=== PATIENT | female | born 1935 | race Caucasian/White ===

== ENCOUNTER 2017-01-10 09:36 | Inpatient (IN) | payer MEDICARE, OTHER ==
[~2017-01-10] VITALS: Ht 157.5 cm; Wt 69.1 kg
[2017-01-10 10:19] LABS: HEMOGLOBIN 12.5 gm/dl (12.3-15.3); RED BLOOD COUNT 4.09 M/UL (4.00-5.10); WHITE BLOOD COUNT 13.6 K/UL (4.5-11.0)
[2017-01-10] MEDS ORDERED: NORVASC 5 MG TAB5 MG PO (18:26)
[2017-01-10] MEDS ORDERED: LIPITOR TAB 2020 MG PO (18:27)
[2017-01-10] MEDS ORDERED: ASPIR-LOW81 MG PO (18:27)
[2017-01-10] MEDS ORDERED: LOPRESSOR 25 MG25 MG PO (18:27)
[2017-01-11 04:26] LABS: HEMOGLOBIN 11.7 gm/dl (12.3-15.3); RED BLOOD COUNT 3.82 M/UL (4.00-5.10); WHITE BLOOD COUNT 14.2 K/UL (4.5-11.0)
--- NOTE | 2017-01-12 22:41 | NUR ---
PATIENT ENCOURAGED TO WEAR BIPAP, THE RISKS AND BENEFITS OF WEARING BIPAP EXPLAINED. , AND PATIENT DECLINES. PATIENT NODS HER HEAD YES IN UNDERSTANDING AND STATES, "I DON'T LIKE IT." DAUGHTER AT BEDSIDE AND STATES, " I DON'T WANT MY MOMMA TO DO ANYTHING THAT SHE ISN'T COMFORTABLE WITH." I ALSO ENCOURAGED PATIENT TO INCREASE PO INTAKE AND OFFERED HER A GLASS OF WATER.
[2017-01-13 05:48] LABS: HEMOGLOBIN 11.2 gm/dl (12.3-15.3); RED BLOOD COUNT 3.66 M/UL (4.00-5.10)
[2017-01-13 05:59] LABS: WHITE BLOOD COUNT 10.3 K/UL (4.5-11.0)
[2017-01-14 04:23] LABS: HEMOGLOBIN 11.5 gm/dl (12.3-15.3); RED BLOOD COUNT 3.78 M/UL (4.00-5.10); WHITE BLOOD COUNT 10.4 K/UL (4.5-11.0)
[2017-01-15 04:54] LABS: HEMOGLOBIN 11.8 gm/dl (12.3-15.3); RED BLOOD COUNT 3.93 M/UL (4.00-5.10); WHITE BLOOD COUNT 10.1 K/UL (4.5-11.0)
[2017-01-17 04:32] LABS: HEMOGLOBIN 10.8 gm/dl (12.3-15.3); RED BLOOD COUNT 3.62 M/UL (4.00-5.10)
[2017-01-17 04:33] LABS: WHITE BLOOD COUNT 7.2 K/UL (4.5-11.0)
[2017-01-18 09:43] LABS: HEMOGLOBIN 11.4 gm/dl (12.3-15.3); RED BLOOD COUNT 3.74 M/UL (4.00-5.10)
[2017-01-18 09:55] LABS: WHITE BLOOD COUNT 9.9 K/UL (4.5-11.0)
--- NOTE | 2017-01-19 04:25 | NUR ---
01/19/17 APPROXIMATED 0320 MARIA LUZ FROM [facility] CONTACTED ME TO CLARIFY IF PT HAD BEEN ON BIPAP BEFORE. SHE STATED THAT PER RT'S CHARTING THE PATIENT HAD REFUSED THE BIPAP AND HAD NEVER BEEN ON IT. SHE REMINDED ME OF POLICY THAT ANY PT NEWLY PLACED ON BIPAP MAY NOT BE ON A MEDSURG FLOOR. I CLARIFIED WITH THE PTS DAUGHTER WHO CARES FOR HER THAT THE PATIENT HAD BEEN ON THE BIPAP BEFORE. THE DAUGHTER STATED THAT THE PATIENT WOULD WEAR IT FOR A FEW HOURS IN PCU BEFORE IT "GOT TO BE TOO MUCH FOR HER NERVES" AND THEN SHE WOULD REFUSE TO WEAR IT ANYMORE. I CONTACTED DR. BROTHERS, EXPLAINED THE POLICY AND THE INFORMATION THAT I OBTAINED FROM THE DAUGHTER, AND RECEIVED AN ORDER THAT IT IS OKAY FOR HER TO REMAIN ON MEDSURG. I NOTIFED MARIA LUZ OF THIS IMMEDIATELY.
== END 2017-01-19 12:00 | DRG 246 ==
LOC: ER1 09:36 → ZEROF 11:49 → MED SURG 4 11:49 → PROG CARE 11:49 → MED SURG 4 17:36 → PROG CARE 01-11 14:17 → M/S 01-18 21:37
PROVIDERS: Emergency Medicine; Hospitalist; Physician Assistant Medical; ADMIT Family Medicine
PROC: 027034Z Dilation of Coronary Artery, One Artery with Drug-eluting Intraluminal Device, Percutaneous Approach (ICD-10-PCS; principal; 2017-01-14)
PROC: 4A023N6 Measurement of Cardiac Sampling and Pressure, Right Heart, Percutaneous Approach (ICD-10-PCS; 2017-01-14)
PROC: B2141ZZ Fluoroscopy of Right Heart using Low Osmolar Contrast (ICD-10-PCS; 2017-01-14)
DX: I21.4 Non-ST elevation (NSTEMI) myocardial infarction (principal); J96.01 Acute respiratory failure with hypoxia; I50.33 Acute on chronic diastolic (congestive) heart failure; J10.01 Influenza due to other identified influenza virus with the same other identified influenza virus pneumonia; G93.41 Metabolic encephalopathy; I13.0 Hypertensive heart and chronic kidney disease with heart failure and stage 1 through stage 4 chronic kidney disease, or unspecified chronic kidney disease; E87.2 Acidosis; N17.9 Acute kidney failure, unspecified; E87.1 Hypo-osmolality and hyponatremia; I35.0 Nonrheumatic aortic (valve) stenosis; N18.3 Chronic kidney disease, stage 3 (moderate); E11.65 Type 2 diabetes mellitus with hyperglycemia; E66.01 Morbid (severe) obesity due to excess calories; Z68.28 Body mass index [BMI] 28.0-28.9, adult; M62.50 Muscle wasting and atrophy, not elsewhere classified, unspecified site; R79.89 Other specified abnormal findings of blood chemistry; Z90.710 Acquired absence of both cervix and uterus; Z98.890 Other specified postprocedural states; Z83.3 Family history of diabetes mellitus; Z79.82 Long term (current) use of aspirin; Z79.899 Other long term (current) drug therapy; R53.1 Weakness; R00.0 Tachycardia, unspecified; D72.829 Elevated white blood cell count, unspecified; Z51.89 Encounter for other specified aftercare
CPT/HCPCS: ECHO; 36415; 36600; 71010; 80048; 80053; 80202; 82550; 82553; 82803; 82962; 83735; 83880; 84132; 84484; 85014; 85018; 85025; 85027; 85347; 86140; 87040; 87077; 87186; 93005; 93306; 93308; 94640; 94660; 94664; 96372; 96374; 97110; 97116; 97530; 97535; 99285; C1769; C1887; C9600; J0583; J0696; J1644; J1815; J1940; J1956; J2250; J2550; J3010; J3370; J7030; J7040; J7050; J7070; Q9965

== ENCOUNTER → 2017-02-02 | Outpatient (CLI) | payer MEDICARE, OTHER ==
[~2017-02-02] MED LIST: ASPIR-LOW81 MG PO; CLOPIDOGREL75 MG PO; DILTIAZEM 24HR180 M1 PO; LASIX TAB 20 MG20 MG PO; LIPITOR TAB 2020 MG PO; LOPRESSOR 25 MG25 MG PO; MAXIMUM DAILY1 EAC1 PO; NORVASC 5 MG TAB5 MG PO; POTASSIUM CHLO10 MEQ PO
== END ==
LOC: HH 12:36
PROVIDERS: Internal Medicine Cardiovascular Disease
DX: I50.32 Chronic diastolic (congestive) heart failure (principal)
CPT/HCPCS: 80053

== ENCOUNTER 2017-02-04 10:05 | Inpatient (IN) | payer MEDICARE, OTHER ==
[~2017-02-04] VITALS: Ht 157.5 cm; Wt 68.5 kg
[~2017-02-04 10:05] MED LIST changes: -CLOPIDOGREL75 MG PO; -DILTIAZEM 24HR180 M1 PO; -LASIX TAB 20 MG20 MG PO; -MAXIMUM DAILY1 EAC1 PO; -POTASSIUM CHLO10 MEQ PO
[2017-02-04 11:22] LABS: HEMOGLOBIN 9.2 gm/dl (12.3-15.3); RED BLOOD COUNT 3.04 M/UL (4.00-5.10)
[2017-02-04] MEDS ORDERED: LASIX TAB 20 MG20 MG PO (21:23)
[2017-02-04] MEDS ORDERED: POTASSIUM CHLO10 MEQ PO (21:24)
[2017-02-04] MEDS ORDERED: DILTIAZEM 24HR180 M1 PO (21:26)
[2017-02-04] MEDS ORDERED: CLOPIDOGREL75 MG PO (21:26)
[2017-02-04] MEDS ORDERED: LOPRESSOR 25 MG25 MG PO (21:27)
[2017-02-04] MEDS ORDERED: MAXIMUM DAILY1 EAC1 PO (21:28)
[2017-02-05 03:33] LABS: HEMOGLOBIN 8.8 gm/dl (12.3-15.3); RED BLOOD COUNT 2.95 M/UL (4.00-5.10); WHITE BLOOD COUNT 14.3 K/UL (4.5-11.0)
== END 2017-02-07 09:25 | disposition short-term general hospital (02) | DRG 291 ==
LOC: ER1 10:05 → CCU 16:20
PROVIDERS: Emergency Medicine; Hospitalist; ADMIT Internal Medicine
DX: I13.0 Hypertensive heart and chronic kidney disease with heart failure and stage 1 through stage 4 chronic kidney disease, or unspecified chronic kidney disease (principal); I50.33 Acute on chronic diastolic (congestive) heart failure; J96.21 Acute and chronic respiratory failure with hypoxia; J96.22 Acute and chronic respiratory failure with hypercapnia; J90 Pleural effusion, not elsewhere classified; N17.9 Acute kidney failure, unspecified; I35.0 Nonrheumatic aortic (valve) stenosis; N18.3 Chronic kidney disease, stage 3 (moderate); D64.9 Anemia, unspecified; I25.2 Old myocardial infarction; I25.10 Atherosclerotic heart disease of native coronary artery without angina pectoris; E11.22 Type 2 diabetes mellitus with diabetic chronic kidney disease; E78.5 Hyperlipidemia, unspecified; Z95.5 Presence of coronary angioplasty implant and graft; Z90.710 Acquired absence of both cervix and uterus; Z98.890 Other specified postprocedural states; Z88.8 Allergy status to other drugs, medicaments and biological substances; Z87.891 Personal history of nicotine dependence; E66.9 Obesity, unspecified; Z68.27 Body mass index [BMI] 27.0-27.9, adult; Z79.02 Long term (current) use of antithrombotics/antiplatelets; Z79.82 Long term (current) use of aspirin; Z79.899 Other long term (current) drug therapy; R79.89 Other specified abnormal findings of blood chemistry
CPT/HCPCS: 36415; 36600; 71010; 80048; 80053; 82550; 82553; 82803; 82962; 83735; 83874; 83880; 84484; 85014; 85018; 85025; 85027; 87040; 93005; 94640; 94664; 96374; 96375; 99285; J1940; J2543; J7050

== ENCOUNTER 2017-04-01 15:52 | Emergency (ER) | payer MEDICARE, OTHER ==
[~2017-04-01 15:52] MED LIST changes: +CLOPIDOGREL75 MG PO; +DILTIAZEM 24HR180 M1 PO; +LASIX TAB 20 MG20 MG PO; +MAXIMUM DAILY1 EAC1 PO; +POTASSIUM CHLO10 MEQ PO
[2017-04-01 17:58] LABS: HEMOGLOBIN 9.1 gm/dl (12.3-15.3); RED BLOOD COUNT 3.1 M/UL (4.00-5.10); WHITE BLOOD COUNT 9.4 K/UL (4.5-11.0)
== END 2017-04-01 20:15 | disposition home or self-care (01) ==
LOC: ER1 15:52
PROVIDERS: Emergency Medicine
DX: S00.03XA Contusion of scalp, initial encounter (principal); W01.0XXA Fall on same level from slipping, tripping and stumbling without subsequent striking against object, initial encounter; Y92.009 Unspecified place in unspecified non-institutional (private) residence as the place of occurrence of the external cause
CPT/HCPCS: 36415; 70450; 70486; 72125; 80048; 85025; 85730; 99284

== ENCOUNTER → 2017-07-21 | Outpatient (CLI) | payer MEDICARE, OTHER | LOC: RAD 11:33 | DX: R09.02 Hypoxemia (principal); J43.9 Emphysema, unspecified | CPT/HCPCS: 36600; 71020; 82803 ==